=== PATIENT | female | born 1960 ===

== ENCOUNTER 2021-07-12 10:35 | Day surgery (SDC) | payer OTHER ==
[2021-07-09 09:20] VITALS: BMI 29.9
[2021-07-09 10:16] LABS: Lymphocytes % 29.1 % (15.3-44.8); MPV 6.8 fL (7.6-11.3)
[2021-07-09 10:22] LABS: Potassium 3.9 mmol/L (3.5-5.1)
[2021-07-09 10:41] LABS: Protime INR 1.73
--- NOTE | 2021-07-09 11:13 | RAD REPORT ---
EXAM DESCRIPTION: [facility] (2 Views)07/09/2021 10:23 am CLINICAL HISTORY: Preop for cardiac catheterization/hypertension COMPARISON: None FINDINGS: The lungs appear clear of acute infiltrate. The heart appears borderline enlarged IMPRESSION: No acute abnormalities displayed
[~2021-07-12 10:35] MED LIST: NA CHLORIDE 0.9% 0 ML ONE
[2021-07-12] MEDS ORDERED: HEPA 1000U/500MLS 2,000 UNIT/1,000 ML BAG IV ONE (10:49)
[2021-07-12] MEDS ORDERED: MIDAZOLAM HCL 2 MG/2 ML INJ ONE ×2 (11:02→12:32)
[2021-07-12] MEDS ORDERED: FENTANYL CITR 100 MCG/2 ML ONE (11:02)
[2021-07-12] MEDS ORDERED: HEPARIN 5000 UNIT/ML 1 ML VIAL ONE (11:02)
[2021-07-12] MEDS ORDERED: NITROGLYCERIN/D5W 50 MG/250 ML BTL IV ONE (11:03)
[2021-07-12] MEDS ORDERED: HEPARIN 10,000 UNIT/10 ML VIAL IV ONE (11:03)
[2021-07-12] MEDS ORDERED: ATROPINE SULF 1 MG/10 ML SYR IV ONE (11:03)
[2021-07-12] MEDS ORDERED: VERAPAMIL HCL 10 MG/4 ML VIAL IV ONE (11:03)
[2021-07-12] MEDS ORDERED: NITROGLYCERIN 100 MCG/ML SYR (for cath lab use only) IV ONE (11:03)
[2021-07-12] MEDS ORDERED: NA CHLORIDE 0.9% 500 ML ONE (11:04)
[2021-07-12] MEDS ORDERED: NITROGLYCERIN/D5W 25 MG/250 ML BTL IV ONE (11:04)
[2021-07-12] MEDS ORDERED: HYDRALAZINE HCL 20 MG/ML VIAL ONE (12:45)
[2021-07-12 14:15] VITALS: O2SAT 98
[2021-07-12 14:33] VITALS: BP 167/45
--- NOTE | 2021-07-12 23:56 | OP ---
Date of Procedure: 07/12/2021 Surgeon: ELZA WATKINS Procedures Performed: 1.Selective coronary angiogram. 2.Angiogram with runoff. Indications: Unstable angina and peripheral vascular disease. Access: Right radial artery 6-Slovenian, closed with TR band. Complications: None. Bleeding: Less than 20 mL. Total Sedation Time: 25 minutes. Description Of Procedure: After risks, benefits, and alternatives were explained, the patient agreed to proceed and signed a formal consent. The patient was brought into the cardiac catheterization la boratory, prepped and draped in usual sterile fashion. We gave fentanyl and Versed in incremental do ses to achieve adequate amount of sedation. Then, I accessed right radial artery using pediatric lauren ropuncture kit, placed 6-Slovenian slender sheath, and took a 5-Slovenian [place] 4.0 catheter into the aorti c root, engaged left main and right coronary artery, took standard views and then exchanged for a elke g pigtail placed in distal aorta and then did distal aortogram with runoff. Then, I removed the cath eter and sheath and placed TR band with good hemostasis. Findings: 1.Coronary angiogram: a.Left main, large and normal. b.LAD, large vessel with mid diffuse 30% to 40% stenosis and normal diagonal branches. c.Left circumflex is normal and small, nondominant. d.RCA, large dominant with mid diffuse 20% stenosis. 2.Peripheral angiogram: a.Distal aorta is narrowed about 30% to 40%. b.Right common iliac and internal iliac arteries have diffuse 40% stenosis. The femoral artery on t he right is normal. Right profunda is normal and then the right SFA has diffuse 40% stenosis in the mid section, however, and flow was great below the knee. Anterior and posterior tibialis and peronea ls are all patent all the way to the foot. c.On the left side, there is a left common iliac INSOLE CEMENTER proximally and it reconstitutes at the femoral area and then the SFA appears to be normal and the 3 vessels below the knee are normal and profunda i s normal as well. No significant disease except the INSOLE CEMENTER. Conclusion: 1.Mild nonobstructive coronary artery disease. 2.Severe peripheral vascular disease with left common iliac INSOLE CEMENTER. Plan: Plan for a left common iliac INSOLE CEMENTER intervention in [place]. SR/MODL Voice ID: [id number] Report ID: [id number]
== END 2021-07-12 15:45 | disposition home or self-care (01) ==
LOC: CCL 10:35
PROVIDERS: ATTEND Internal Medicine
DX: I25.110 Atherosclerotic heart disease of native coronary artery with unstable angina pectoris (principal); I70.203 Unspecified atherosclerosis of native arteries of extremities, bilateral legs; I70.92 Chronic total occlusion of artery of the extremities; I10 Essential (primary) hypertension; F17.210 Nicotine dependence, cigarettes, uncomplicated; Z79.899 Other long term (current) drug therapy; Z88.6 Allergy status to analgesic agent
CPT/HCPCS: 85025; 80048; 36415; 85610; 85730; 71046; 75630; 93454; 76937; C1893; J0360; J1644 ×2; J2250; J3010; J7040